=== PATIENT | female | born 1995 | race Caucasian/White ===

== ENCOUNTER 2022-04-16 01:59 | Emergency (ER) | payer OTHER, MEDICAID, SELFPAY ==
[2022-04-16] VITALS (9 sets, daily range): BP systolic 102–132; BP diastolic 65–84; PULSE 67–89; RESP 17; TEMP 36.9; O2SAT 97–99; BMI 44.3
--- NOTE | 2022-04-16 02:41 | ED_ITS ---
HPI - Headache General Chief Complaint: Headache Stated Complaint: Migraine, Epilepsy Time Seen by Provider: 04/16/22 02:41 Mode of arrival: Wheelchair History of Present Illness HPI Narrative: 26-year-old woman with history of seizure disorder as well as migraine presents complaining of in creased tics and partial seizures today with a migraine headache starting at 9 this morning in getting worse over the course of the day. She laid down to go to sleep in at 9:00 p.m. [place] up with significant worsening headache comes in for further evaluation. She does not report fevers, cough, chills, vomiting, diarrhea, abdominal pain, chest pain, palpitations. She has not had any visual changes nor aura. She has had no head trauma. She describes no other neurologic findings nor paresthesias. She has not had any orthopnea, dyspnea or lower extremity edema. Related Data Allergies Allergy/AdvReac Type Severity Reaction Status Date / Time No Known Drug Allergies Allergy Verified 04/16/22 02:15 Review of Systems Review of Systems Narrative: Remainder of complete review of systems is otherwise unremarkable except for that included in the HPI. Patient History Social History Smoking Status: Never smoker Smoking Status: Never smoker alcohol intake frequency: a few times a month Substance Use Type: does not use Exam Initial Vital Signs Initial Vital Signs: Vital Signs Temperature 98.5 F 04/16/22 02:15 Pulse Rate 89 04/16/22 02:15 Respiratory Rate 17 04/16/22 02:15 Blood Pressure 132/84 04/16/22 02:15 Pulse Oximetry 99 04/16/22 02:15 General: Healthy appearing, in no acute distress. Able to give a complete and coherent history. Well-nourished well-developed HEENT: Moist mucous membranes, normal sclera with reactive pupils, Neck: No cervical adenopathy, supple Respiratory: Lungs are clear to auscultation, no wheezing no rales no rhonchi. Full and symmetrical air movement Cardiac: Regular rate and rhythm no murmurs no bruits Abdomen: Soft, nontender, good bowel tones, no flank pain Skin: Warm and dry, no rashes Neurologic: Grossly neurologically intact with no obvious asymmetries or abnormalities, no hyper reflexia or clonus Extremities: No trauma, well perfused Psych: Cooperative, appropriate insight and affect Course Orders Ordered: ED Orders 04/16/22 02:50 CBC Auto Diff [Complete Blood Count AUTO DIFF] Stat CMP [Comprehensive Metabolic Panel] Stat Lamotrigine Lamictal Stat Topiramate Stat Discontinued Medications Sodium Chloride (Normal Saline 0.9%) 1,000 mls @ 1,000 mls/hr IV BOLUS ONE Stop: 04/16/22 03:41 Last Admin: 04/16/22 02:53 Dose: 1,000 mls/hr Documented by: GEORGE Valproic Acid 1,000 mg/ (Dextrose) 60 mls @ 60 mls/hr IV NOW ONE Stop: 04/16/22 03:11 Last Admin: 04/16/22 04:11 Dose: Not Given Documented by: GEORGE Valproic Acid 1,000 mg/ (Dextrose) 110 mls @ 110 mls/hr IV NOW ONE Stop: 04/16/22 05:14 Last Infusion: 04/16/22 05:24 Dose: 0 mls/hr Documented by: Admin: 04/16/22 04:16 Dose: 110 mls/hr Documented by: GEORGE Lorazepam (Lorazepam 2 Mg/Ml Inj) 0.5 mg IV NOW ONE Stop: 04/16/22 02:43 Last Admin: 04/16/22 02:53 Dose: 0.5 mg Documented by: GEORGE Metoclopramide HCl (Metoclopramide 10 Mg/2 Ml Inj) 10 mg IV NOW ONE Stop: 04/16/22 02:43 Last Admin: 04/16/22 02:53 Dose: 10 mg Documented by: GEORGE Vital Signs Vital signs: Vital Signs - 8 hr 04/16/22 02:15 Temperature 98.5 F Pulse Rate 89 Respiratory Rate 17 Blood Pressure 132/84 Pulse Oximetry 99 MDM - Headache Lab Data Result diagrams: 04/16/22 02:50 04/16/22 02:50 Labs: Lab Results 04/16/22 04/16/22 Range/Units 02:50 02:50 WBC 4.5 (4.5-11.0) X10^3/uL RBC 4.87 (4.0-5.2) X10^6/uL Hgb 14.0 (12.0-16.0) g/dL Hct 40.8 (36-46) % MCV 83.7 (80-100) fL MCH 28.7 (26-34) PG MCHC 34.2 (30-36) % RDW 13.5 (11.6-14.8) % Plt Count 253 (150-400) X10^3/uL Neut % (Auto) 40.4 L (50-75) % Lymph % (Auto) 45.6 H (25-40) % [place] % (Auto) 11.6 (3-14) % Eos % (Auto) 1.4 L (2-4) % Baso % (Auto) 1.0 (0-2) % Neut # (Auto) 1800 (2727-9603) /uL Lymph # (Auto) 2100 (7084-7550) /uL [place] # (Auto) 500 (0-900) /uL Eos # (Auto) 100 (0-450) /uL Baso # (Auto) 0 (0-100) /uL Sodium 138 (137-145) mmol/L Potassium 3.9 (3.4-5.1) mmol/L Chloride 108 H (98-107) mmol/L Carbon Dioxide 22 (22-32) mmol/L BUN 13 (7-17) mg/dL Creatinine 0.98 (0.52-1.04) mg/dL Estimated GFR > 60 (>60) mL/min BUN/Creatinine Ratio 13.3 (6-22) Glucose 102 H (70-100) mg/dL Calcium 9.1 (8.4-10.2) mg/dL Total Bilirubin 0.4 (0.2-1.3) mg/dL AST 27 (14-36) IU/L ALT 30 (<35) IU/L Alkaline Phosphatase 44 (38-126) U/L Total Protein 7.8 (6.3-8.2) g/dL Albumin 4.3 (3.5-5.0) g/dL Globulin 3.5 (1.7-4.1) g/dL Albumin/Globulin Ratio 1.2 (1.0-2.8) MDM Narrative Medical decision making narrative: 26-year-old woman with history of migraines and seizure disorder presents with headache and concerned that she is having increasing spasms or muscle tone which have proceeded seizures in the past. She is continuing to take her Lamictal and topiramate regularly. She initially noted her headache at 9:00 a.m. this morning it has gotten progressively worse. With fluids, IV valproic acid, Reglan and Toradol her headache has almost entirely resolved. She has not noticed any excessive muscle fasciculation or pre seizure aura type symptoms since medications have infused. Lab work is reassuring. She appears quite comfortable prior to discharge with no evidence of impending seizure or obvious infection. She did have questions about additional imaging. At this point if additional imaging were to be requested it would likely need to be an MRI and most appropriately done as an outpatient by her neurologist. She understands this. Questions are answered and she is safe for home discharge Discharge Plan Departure Patient Disposition: Home Clinical Impression: Migraine, Seizure disorder Instructions: Migraine -- Adult, DI for Migraine Activity Restrictions/Additional Instructions: Thank you for coming in today Your headache responded nicely to migraine medications. I did take the opportunity to use valproic acid is a migraine medication knowing that it is also is an anti seizure medication. Doing this seems to have calmed down and your overall tics and concerns for increasing seizure-type activity. Your blood work was reassuring. The lamotrigine and topiramate blood levels will likely be available by the end of the week. I would encourage you to sign up for the [facility] portal so that you can access your own lab work and share the levels with your neurologist when you follow-up next week. If you find that you are getting worse or develop any new symptoms, please feel free to return to the emergency department for further evaluation.
[2022-04-16] MEDS: SODIUM CHLORIDE 0.9% 1,000 ML 1000 ML IV (02:53)
[2022-04-16] MEDS: LORazepam 2 MG/ML INJ 0.5 MG IV (02:53)
[2022-04-16] MEDS: METOCLOPRAMIDE 10 MG/2 ML INJ IV (02:53)
[2022-04-16 03:00] LABS: Add Manual Diff / Slide Review NO; Basophils Absolute Auto 0 /uL (0-100); Eosinophils Absolute Auto 100 /uL (0-450); Eosinophils Percent Auto 1.4 % (2-4); Hematocrit 40.8 % (36-46); Lymphocytes Absolute Auto 2100 /uL (1100-4500); Lymphocytes Percent Auto 45.6 % (25-40); Mean Corpuscular HGB Conc 34.2 % (30-36); Mean Corpuscular Hemoglobin 28.7 PG (26-34); Mean Corpuscular Volume 83.7 fL (80-100); Monocytes Absolute Auto 500 /uL (0-900); Monocytes Percent Auto 11.6 % (3-14); Neutrophils Absolute Auto 1800 /uL (1500-7000); Neutrophils Percent Auto 40.4 % (50-75); Platelet Count 253 X10^3/uL (150-400); Red Blood Cell Count 4.87 X10^6/uL (4.0-5.2); Red Cell Distribution Width 13.5 % (11.6-14.8); White Blood Cell Count 4.5 X10^3/uL (4.5-11.0)
[2022-04-16 03:11] LABS: Alanine Aminotransferase 30 IU/L (<35); Albumin 4.3 g/dL (3.5-5.0); Albumin Globulin Ratio 1.2 (1.0-2.8); Alkaline Phosphatase 44 U/L (38-126); Aspartate Aminotransferase 27 IU/L (14-36); BUN Creatinine Ratio 13.3 (6-22); Bilirubin Total 0.4 mg/dL (0.2-1.3); Blood Urea Nitrogen 13 mg/dL (7-17); Calcium 9.1 mg/dL (8.4-10.2); Carbon Dioxide 22 mmol/L (22-32); Chloride 108 mmol/L (98-107); Estimated Glomerular Filt Rate > 60 mL/min (>60); Globulin 3.5 g/dL (1.7-4.1); Glucose 102 mg/dL (70-100); HEMOLYSIS 19 (0-50); Potassium 3.9 mmol/L (3.4-5.1); Sodium 138 mmol/L (137-145); Total Protein 7.8 g/dL (6.3-8.2)
[2022-04-16] MEDS: VALPROIC ACID IV (04:16)
[2022-04-16] MEDS: DEXTROSE 5% IV (04:16)
[2022-04-16] MEDS: WATER IV (04:16)
[2022-04-18 14:22] LABS: Lamotrigine Lamictal 3.5 ug/mL (2.0-20.0); Topiramate 2.8 ug/mL (2.0-25.0)
== END 2022-04-16 05:42 | disposition home or self-care (01) ==
PROVIDERS: Emergency Provider Emergency Medicine
DX: G43.909 Migraine, unspecified, not intractable, without status migrainosus (principal); G40.909 Epilepsy, unspecified, not intractable, without status epilepticus
CPT/HCPCS: 36415; 80053; 80175; 80201; 85025; 96365; 96375; 99284; J2060; J2765

== ENCOUNTER 2022-04-17 18:41 | Emergency (ER) | payer OTHER, MEDICAID, SELFPAY ==
[2022-04-17 19:00] VITALS: BP 127/73; PULSE 81; RESP 18; TEMP 36.1; O2SAT 98; BMI 42.8
[2022-04-17 21:48] VITALS: PULSE 66; O2SAT 100
[2022-04-17 21:49] VITALS: BP 113/69; PULSE 69; O2SAT 99
[2022-04-17 22:00] VITALS: PULSE 69; O2SAT 98
--- NOTE | 2022-04-17 22:24 | PC.NURSE ---
Pt reports that she contacted her neurologist and was instructed to increase her medications this evening but she has not done this yet, she did not bring her meds with her. She feels very tired and weak, she reports generalized pain 8/10.
[2022-04-17 22:30] VITALS: PULSE 88; O2SAT 98
--- NOTE | 2022-04-17 23:48 | ED_ITS ---
HPI - Seizure General Chief Complaint: Seizure Stated Complaint: Migraine, Seizure Time Seen by Provider: 04/17/22 23:31 History of Present Illness HPI Narrative: 26 Female with history of seizure disorder as well as migraine complaining of worsening migraine headache yesterday and increased tics as well. She was seen evaluated yesterday in the emergency department. She takes her Lamictal and topiramate regularly she is followed by neurology at [facility]. Yesterday she was having increased spasms or muscle tones was usually proceed her seizures in the past. She was given a dose of valproic acid yesterday along with Reglan and Toradol which completely resolved her headache. Today she returns could she has had what she called up of some seizures where she stares off into space boyfriend notes that her head just drops times. No nausea or vomiting. She still is complaining of headache she is requesting CT at this time because she is not getting better. She is actually scheduled for an outpatient MRI on April 30 with neurology. She denies any trauma or head injury Related Data Previous Rx's Medication Instructions Recorded topiramate 25 mg tablet (Topamax) 25 mg PO BID #60 tab 04/18/22 topiramate 50 mg tablet (Topamax) 50 mg PO BID #60 tab 04/18/22 Allergies Allergy/AdvReac Type Severity Reaction Status Date / Time No Known Drug Allergies Allergy Verified 04/17/22 19:05 Review of Systems Review of Systems Narrative: GENERAL: Denies chills, fatigue, malaise, fever, sweats, travel HEENT: Denies sinus pain, ear pain, sore throat, difficulty swallowing, neck pain RESPIRATORY: Denies dyspnea, cough, wheezing, hemoptysis, sputum. CARDIOVASCULAR: Denies chest pain, palpitations, orthopnea, edema GASTROINTESTINAL: Denies nausea, vomiting, abdominal pain, diarrhea, constipation, melena. : Denies dysuria, frequency, incontinence, hematuria, urinary retention, flank pain. MUSCULOSKELETAL: Denies weakness, joint pain, or bony pain SKIN: No rash, no erythema, no pruritus NEUROLOGIC: See HPI PSYCHIATRIC: No concerning psychosocial issues. 12 point review of systems is negative except for those stated above and HPI Patient History Social History Smoking Status: Never smoker Smoking Status: Never smoker alcohol intake frequency: a few times a month Substance Use Type: does not use Exam Initial Vital Signs Initial Vital Signs: Vital Signs Temperature 96.9 F L 04/17/22 19:00 Pulse Rate 81 04/17/22 19:00 Respiratory Rate 18 04/17/22 19:00 Blood Pressure 127/73 04/17/22 19:00 Pulse Oximetry 98 04/17/22 19:00 GENERAL: Alert 26-year-old female no acute distress HEENT: Head atraumatic,EOMI, pupils reactive, face symmetric, moist mucous membranes CARDIOVASCULAR: Regular rate and rhythm without murmurs, rubs or gallops. RESPIRATORY: Breath sounds equal bilaterally, no wheezes rales or rhonchi. ABDOMEN: Soft, nontender. Normoactive bowel sounds all 4 quadrants. No gu arding or rebound. EXTREMITIES: Normal range of motion, no clubbing or edema. Neurovascularly intact NEUROLOGICAL: Alert and oriented x4.Normal gait and speech. Cranial nerves II through XII grossly intact. Chief Science Officer strength equal bilateral SKIN: Warm, dry, no laceration, no petechiae, no rashes or lesions. Course Orders Ordered: ED Orders 04/17/22 23:49 CBC Auto Diff [Complete Blood Count AUTO DIFF] Stat CMP [Comprehensive Metabolic Panel] Stat Valproic Acid (Depakene) Total Stat 04/18/22 00:00 CT head/brain wo con Stat 04/18/22 00:14 PT [Prothrombin Time INR] Stat PTT [Partial Thromboplastin Time] Stat Prolactin Stat 04/18/22 01:48 COVID19 -Nasal RAPID/Pre-Proc Stat 04/18/22 03:17 CT angio head and neck Stat CT head/brain wo con Stat Discontinued Medications Hydrocodone Bitart/Acetaminophen (Hydrocodone/Acet 5/325 Prepack) 1 bottle MISC SEEINSTR ONE Stop: 04/18/22 06:38 Last Admin: 04/18/22 06:40 Dose: 1 bottle Documented by: SANDRA Morphine Sulfate (Morphine 2 Mg/Ml Inj) 2 mg IV NOW ONE Stop: 04/18/22 01:24 Last Admin: 04/18/22 01:30 Dose: 2 mg Documented by: SANDRA Morphine Sulfate (Morphine 2 Mg/Ml Inj) 2 mg IV NOW ONE Stop: 04/18/22 02:40 Last Admin: 04/18/22 02:43 Dose: 2 mg Documented by: SANDRA Ondansetron HCl (Ondansetron 4 Mg/2 Ml Inj) 4 mg IV NOW ONE Stop: 04/18/22 01:25 Last Admin: 04/18/22 01:30 Dose: 4 mg Documented by: SANDRA Vital Signs Vital signs: Vital Signs - 8 hr 04/18/22 02:59 04/18/22 03:00 04/18/22 03:30 Pulse Rate 72 77 73 Blood Pressure Pulse Oximetry 95 95 96 04/18/22 04:00 04/18/22 04:30 04/18/22 05:00 Pulse Rate 76 88 68 Blood Pressure Pulse Oximetry 96 97 96 04/18/22 05:30 04/18/22 06:00 04/18/22 06:30 Pulse Rate 65 67 71 Blood Pressure Pulse Oximetry 97 96 96 04/18/22 06:33 Pulse Rate 72 Blood Pressure 111/59 L Pulse Oximetry 98 MDM - Seizure Lab Data Result diagrams: 04/18/22 00:14 04/18/22 00:14 Labs: Lab Results 04/18/22 04/18/22 04/18/22 Range/Units 00:14 00:14 00:14 WBC 5.0 (4.5-11.0) X10^3/uL RBC 4.49 (4.0-5.2) X10^6/uL Hgb 13.2 (12.0-16.0) g/dL Hct 37.9 (36-46) % MCV 84.5 (80-100) fL MCH 29.5 (26-34) PG MCHC 34.9 (30-36) % RDW 13.3 (11.6-14.8) % Plt Count 283 (150-400) X10^3/uL Neut % (Auto) 33.1 L (50-75) % Lymph % (Auto) 52.5 H (25-40) % [place] % (Auto) 11.8 (3-14) % Eos % (Auto) 1.7 L (2-4) % Baso % (Auto) 0.9 (0-2) % Neut # (Auto) 1600 (6391-6401) /uL Lymph # (Auto) 2600 (8742-2882) /uL [place] # (Auto) 600 (0-900) /uL Eos # (Auto) 100 (0-450) /uL Baso # (Auto) 0 (0-100) /uL PT 12.0 (10.1-12.7) SECONDS INR 1.1 (0.9-1.3) APTT 40 H (26.4-36.2) SECONDS Sodium 140 (137-145) mmol/L Potassium 3.6 (3.4-5.1) mmol/L Chloride 109 H (98-107) mmol/L Carbon Dioxide 22 (22-32) mmol/L BUN 12 (7-17) mg/dL Creatinine 0.90 (0.52-1.04) mg/dL Estimated GFR > 60 (>60) mL/min BUN/Creatinine Ratio 13.3 (6-22) Glucose 91 (70-100) mg/dL Calcium 9.0 (8.4-10.2) mg/dL Total Bilirubin 0.4 (0.2-1.3) mg/dL AST 21 (14-36) IU/L ALT 23 (<35) IU/L Alkaline Phosphatase 42 (38-126) U/L Total Protein 7.5 (6.3-8.2) g/dL Albumin 4.1 (3.5-5.0) g/dL Globulin 3.4 (1.7-4.1) g/dL Albumin/Globulin Ratio 1.2 (1.0-2.8) Prolactin (3.0-18.6) ng/mL SARS-CoV-2 (PCR) (Negative) 04/18/22 04/18/22 Range/Units 00:14 01:48 WBC (4.5-11.0) X10^3/uL RBC (4.0-5.2) X10^6/uL Hgb (12.0-16.0) g/dL Hct (36-46) % MCV (80-100) fL MCH (26-34) PG MCHC (30-36) % RDW (11.6-14.8) % Plt Count (150-400) X10^3/uL Neut % (Auto) (50-75) % Lymph % (Auto) (25-40) % [place] % (Auto) (3-14) % Eos % (Auto) (2-4) % Baso % (Auto) (0-2) % Neut # (Auto) (2294-9160) /uL Lymph # (Auto) (5661-3744) /uL [place] # (Auto) (0-900) /uL Eos # (Auto) (0-450) /uL Baso # (Auto) (0-100) /uL PT (10.1-12.7) SECONDS INR (0.9-1.3) APTT (26.4-36.2) SECONDS Sodium (137-145) mmol/L Potassium (3.4-5.1) mmol/L Chloride (98-107) mmol/L Carbon Dioxide (22-32) mmol/L BUN (7-17) mg/dL Creatinine (0.52-1.04) mg/dL Estimated GFR (>60) mL/min BUN/Creatinine Ratio (6-22) Glucose (70-100) mg/dL Calcium (8.4-10.2) mg/dL Total Bilirubin (0.2-1.3) mg/dL AST (14-36) IU/L ALT (<35) IU/L Alkaline Phosphatase (38-126) U/L Total Protein (6.3-8.2) g/dL Albumin (3.5-5.0) g/dL Globulin (1.7-4.1) g/dL Albumin/Globulin Ratio (1.0-2.8) Prolactin 43.0 H (3.0-18.6) ng/mL SARS-CoV-2 (PCR) Negative (Negative) Point of Care Testing Test Results Negative Urine Dip Bedside Urine Glucose Negative Bedside Urine Bilirubin - Negative Bedside Urine Ketone - Negative Urine Specific [place] 1.020 Bedside Urine Occult Blood - Negative Bedside Urine pH 6.5 Bedside Urine Protein - Negative Bedside Urine Urobilinogen - Negative Bedside Urine Nitrite - Negative Bedside Urine Leukocytes - Negative Esterase Imaging Data CT scan - head: Radiologist's Impression: Patient: Marilia Sanchez MR#: [id number] : 1995 Acct:[id number] Age/Sex: 26 / F Date of Service: 04/18/22 Loc: ED Accession Number: [id number] ?? Procedure: CT head/brain wo con Ordering Provider: Mai Le D.O. PROCEDURE:? CT HEAD/BRAIN WO CON ? INDICATIONS:? headaches abnormal ? TECHNIQUE:? Noncontrast 4.5 mm thick angled axial sections acquired from the foramen magnum to the vertex, with coronal and sagittal reformats.? For radiation dose reduction, the following was used:? automated exposure control, adjustment of mA and/or kV according to patient size.? ? COMPARISON:? None. ? FINDINGS:? Image quality:? Excellent.? ? CSF spaces:? Basal cisterns are patent.? No extra-axial fluid collections.? Ventricles are normal in size and shape.? ? Brain:? There is a small amount of linear high density along a left posterior frontal lobe sulcus on series 2, image 22. No mass or mass effect.? Shin-white matter interface appears preserved.? ? Skull and face:? Calvarium and visualized facial bones are intact, without suspicious lesions.? ? Sinuses:? Visualized sinuses and mastoids are clear.? ? IMPRESSION:? ? 1. Small amount of subarachnoid hemorrhage along the posterior left frontal lobe . ? Findings discussed with Dr. Le on 04/18/2022 at 1:10 a.m.. ? ? Dictated by: Héctor Johnson M.D. on 04/18/2022 at 1:06 ? ? CTA - brain/neck: Radiologist's Impression: Preliminary report: Prominent venous structure is present within left parietal lobe adjacent to previously noted density possibly a small developmental venous variant no aneurysm or chew AVM I appreciate CT Head: Radiologist's Impression: Preliminary report left parietal parenchymal density could represent calcification acute hemorrhage. There is no mass effect in appearance is stable. Not suggestive of subarachnoid hemorrhage on the current study. No new abnormality. MDM Narrative Medical decision making narrative: Patient really does not have actual seizure activity in the emergency department. Possible some mild twitching which family member state improved with morphine. Her pain is significantly better after the morphine and itching has stopped. Prolactin is mildly elevated at 47. Initial CT was concerning for subarachnoid hemorrhage 0255 Dr. Shaw, neuro surgery at [facility] has reviewed CT and updated patient's symptoms and test results. At this time he read recommends a repeat head CT with a CT angio. If patient has a known cavernous malformation is difficult to tell if this is of bleed or the cavernous malformation. However he suspects it is a cavernous malformation in which case no need for transfer. States if CT angio and noncontrast CT head are stable the patient may be dis charged from the emergency department. Repeat head CT and CT angio are negative, probable location of cavernous malformation. 0600 Dr. Mckay, neurologist at [facility] has been updated patient's symptoms test results. At this time recommends increasing Topamax to 75 mg twice a day and following up with . Discussed plan with patient and mother. Both are agreeable. Discharge Plan Departure Patient Disposition: Home Clinical Impression: Seizure disorder Instructions: DI for Seizure Disorder -- Adult Activity Restrictions/Additional Instructions: *You have been diagnosed with seizure disorder *What to do: Fortunately you not have bleeding in your brain. However high still recommend getting her outpatient MRI as scheduled. Spoke with on-call Neurology who suggest increasing Topamax, in following up with her own neurologist *Continue to take medications as directed Topamax 75 mg twice a day *Follow up with your primary care provider in 2-3 days or call [phone] *Return to ER if you should have increased seizure activity, worsening headache, weakness persistent vomiting or any new, worsening or concerning symptoms Prescriptions: New topiramate [Topamax] 50 mg tablet 50 mg PO BID Qty: 60 0RF topiramate [Topamax] 25 mg tablet 25 mg PO BID Qty: 60 0RF Referrals: Maddie King MD [Non-Staff] - Visit Report Forms: Patient Portal/API
[2022-04-18] VITALS (10 sets, daily range): BP systolic 111; BP diastolic 59; PULSE 65–88; O2SAT 95–98
--- NOTE | 2022-04-18 | DI.CT.S_ITS ---
PROCEDURE: CT HEAD/BRAIN WO CON INDICATIONS: headaches abnormal TECHNIQUE: Noncontrast 4.5 mm thick angled axial sections acquired from the foramen magnum to the vertex, with coronal and sagittal reformats. For radiation dose reduction, the following was used: automated exposure control, adjustment of mA and/or kV according to patient size. COMPARISON: None. FINDINGS: Image quality: Excellent. CSF spaces: Basal cisterns are patent. No extra-axial fluid collections. Ventricles are normal in size and shape. Brain: There is a small amount of linear high density along a left posterior frontal lobe sulcus on series 2, image 22. No mass or mass effect. Shin-white matter interface appears preserved. Skull and face: Calvarium and visualized facial bones are intact, without suspicious lesions. Sinuses: Visualized sinuses and mastoids are clear. IMPRESSION: 1. Small amount of subarachnoid hemorrhage along the posterior left frontal lobe. Findings discussed with Dr. Le on 04/18/2022 at 1:10 a.m.. Dictated by: Héctor Johnson M.D. on 04/18/2022 at 1:06 Approved by: Héctor Johnson M.D. on 04/18/2022 at 1:11
[2022-04-18 00:30] LABS: Add Manual Diff / Slide Review NO; Basophils Absolute Auto 0 /uL (0-100); Basophils Percent Auto 0.9 % (0-2); Eosinophils Absolute Auto 100 /uL (0-450); Eosinophils Percent Auto 1.7 % (2-4); Hematocrit 37.9 % (36-46); Hemoglobin 13.2 g/dL (12.0-16.0); Lymphocytes Absolute Auto 2600 /uL (1100-4500); Lymphocytes Percent Auto 52.5 % (25-40); Mean Corpuscular HGB Conc 34.9 % (30-36); Mean Corpuscular Hemoglobin 29.5 PG (26-34); Mean Corpuscular Volume 84.5 fL (80-100); Monocytes Absolute Auto 600 /uL (0-900); Monocytes Percent Auto 11.8 % (3-14); Neutrophils Absolute Auto 1600 /uL (1500-7000); Neutrophils Percent Auto 33.1 % (50-75); Platelet Count 283 X10^3/uL (150-400); Red Blood Cell Count 4.49 X10^6/uL (4.0-5.2); Red Cell Distribution Width 13.3 % (11.6-14.8)
[2022-04-18 00:36] LABS: Alanine Aminotransferase 23 IU/L (<35); Albumin 4.1 g/dL (3.5-5.0); Albumin Globulin Ratio 1.2 (1.0-2.8); Alkaline Phosphatase 42 U/L (38-126); Aspartate Aminotransferase 21 IU/L (14-36); BUN Creatinine Ratio 13.3 (6-22); Bilirubin Total 0.4 mg/dL (0.2-1.3); Blood Urea Nitrogen 12 mg/dL (7-17); Carbon Dioxide 22 mmol/L (22-32); Chloride 109 mmol/L (98-107); Estimated Glomerular Filt Rate > 60 mL/min (>60); Globulin 3.4 g/dL (1.7-4.1); Glucose 91 mg/dL (70-100); HEMOLYSIS < 15 (0-50); Potassium 3.6 mmol/L (3.4-5.1); Sodium 140 mmol/L (137-145); Total Protein 7.5 g/dL (6.3-8.2)
[2022-04-18] MEDS: MORPHINE 2 MG/ML INJ IV ×2 (01:30→02:43)
[2022-04-18] MEDS: ONDANSETRON 4 MG/2 ML INJ IV (01:30)
[2022-04-18 01:34] LABS: INR 1.1 (0.9-1.3)
[2022-04-18 01:37] LABS: PTT Partial Thromboplastin Tim 40 SECONDS (26.4-36.2)
[2022-04-18 02:13] LABS: COVID19 -Nasal RAPID Negative (Negative)
--- NOTE | 2022-04-18 03:17 | DI.CT.S_ITS ---
PROCEDURE: CT ANGIO HEAD AND NECK INDICATIONS: SAH vs cavernous malformation TECHNIQUE: After the administration of intravenous contrast, 1 mm thick sections acquired from the aortic arch through the [place] of [place]. Post-contrast 4.5 mm thick sections then re-acquired from the foramen magnum to the vertex. 3-dimensional [id number] (MIP) and/or volume rendering reformats were acquired of the central intracranial vasculature and neck separately. For radiation dose reduction, the following was used: automated exposure control, adjustment of mA and/or kV according to patient size. COMPARISON: None. FINDINGS: Image quality: Excellent. BRAIN: CSF spaces: Ventricles are normal in size and shape. Basal cisterns are patent. No extra-axial fluid collections. Brain: There is a mildly enhancing 1.0 x 0.7 x 0.9 centimeter lesion in the left parietal lobe which corresponds to finding identified by noncontrast CT scan of the head obtained April 18, 2022. No local mass effect associated with the lesion. No edema is associated with the lesion. No midline shift. No intracranial bleeds. Shin-white matter interface appears intact. Skull and face: Calvarium and facial bones appear intact, without suspicious lesions. Orbits appear normal. Sinuses: Sinuses and mastoids are clear. HEAD CT ANGIOGRAPHY: Anterior circulation: Intracranial internal carotid arteries are normal in size and flow. The flow within the paired anterior cerebral arteries is normal and symmetric. The flow within the middle cerebral arteries is normal and symmetric. The anterior communicating artery is seen. No aneurysms are seen. Posterior circulation: Visualized portions of the vertebral arteries demonstrate normal caliber, and join to form a normal appearing basilar artery. Flow within the posterior cerebral arteries is normal and symmetric. No aneurysms are seen. Dural sinuses demonstrate normal postcontrast enhancement. NECK CT ANGIOGRAPHY: Carotid system: The great vessels demonstrate a conventional anatomy as they arise from the aortic arch. The origins of the common carotid arteries appear patent. The common carotid arteries demonstrate normal caliber and courses. The bifurcation regions are both widely patent. The internal carotid arteries demonstrate normal calibers and courses. Posterior circulation: The origins of the vertebral arteries both appear widely patent. The more superior extracranial portions of both vertebral arteries also demonstrate normal courses and calibers. They join to form a normal appearing basilar artery. Soft tissues: Mucosal prominence noted at the base of the tongue which could represent lingual tonsil hypertrophy or less likely neoplastic process. Bones: No suspicious bony lesions. Visualized cervical spine appears normally aligned. IMPRESSION: 1. Small enhancing lesion in the left parietal lobe which corresponds to hyperdense lesion identified by noncontrast CT scan obtained April 18, 2022. Lesion has imaging characteristics most suggestive of a vascular malformation such as cavernous angioma, however neoplastic process is not completely excluded by CT imaging. Recommend MRI of the brain with and without contrast for definitive characterization. 2. No large vessel occlusion, vascular stenosis, vascular dissection or aneurysm. 3. Mucosal prominence at the base of the tongue. Recommend correlation with direct visualization to differentiate lingual tonsil hypertrophy from other etiologies. Any quantitative measurements of stenosis were performed using NASCET criteria. Dictated by: Maryanne Hair MD, PhD on 04/18/2022 at 8:08 Approved by: Maryanne Hair MD, PhD on 04/18/2022 at 8:14
--- NOTE | 2022-04-18 03:17 | DI.CT.S_ITS ---
PROCEDURE: CT HEAD/BRAIN WO CON INDICATIONS: SAH vs cavernous malformation TECHNIQUE: Noncontrast 4.5 mm thick angled axial sections acquired from the foramen magnum to the vertex, with coronal and sagittal reformats. For radiation dose reduction, the following was used: automated exposure control, adjustment of mA and/or kV according to patient size. COMPARISON: [facility], CT, CT ANGIO HEAD AND NECK, 04/18/2022, 3:25. [facility], CT, CT HEAD/BRAIN WO CON, 04/18/2022, 0:11. FINDINGS: Image quality: Excellent. CSF spaces: Basal cisterns are patent. No extra-axial fluid collections. The ventricles are symmetric in size and shape. Brain: There is focal thickening of left parietal gyrus with increased density with speckled calcifications. Lesion measures approximately 1.2 x 0.8 x 1.1 centimeters. No intracranial bleeds. There is cerebral volume loss for age, with resultant ventricular and sulcal prominence. There are periventricular and deep white matter chronic small vessel ischemic changes. There is intracranial internal carotid artery atherosclerosis. Skull and face: Calvarium and visualized facial bones appear intact, without suspicious lesions. Sinuses: Visualized sinuses and mastoids are clear. IMPRESSION: 1.2 x 0.8 x 1.1 centimeter hyperdense lesion with speckled calcifications in the left parietal lobe. Lesion may represent a vascular malformation including cavernoma, however early neoplastic process is not completely excluded. Recommend MRI of the brain with and without gadolinium for definitive characterization. Findings and recommendations discussed with Dr. Nieves on April 18, 2022 at 8:05 a.m.. Dictated by: Maryanne Hair MD, PhD on 04/18/2022 at 7:57 Approved by: Maryanne Hair MD, PhD on 04/18/2022 at 8:06
[2022-04-18] MEDS: HYDROCODONE/ACET 5/325 PREPACK 1 BOTTLE MISC (06:40)
[2022-04-19 00:28] LABS: Valproic Acid (Depakene) Total 6 ug/mL (50-100)
== END 2022-04-18 06:46 | disposition home or self-care (01) ==
PROVIDERS: Emergency Provider Emergency Medicine
DX: G40.909 Epilepsy, unspecified, not intractable, without status epilepticus (principal); Z20.822 Contact with and (suspected) exposure to COVID-19
CPT/HCPCS: 36415; 70450; 70496; 70498; 80053; 80164; 81003; 81025; 84146; 85025; 85610; 85730; 87635; 96374; 96375; 96376; 99284; C9803; J2270; J2405; Q9967

== ENCOUNTER 2023-05-15 16:11 | Emergency (ER) | payer OTHER, MEDICAID, SELFPAY ==
[2023-05-15] VITALS (13 sets, daily range): BP systolic 111–147; BP diastolic 69–87; PULSE 75–106; RESP 16; TEMP 36.3–36.4; O2SAT 97–100; BMI 49.0
[2023-05-15] MEDS: ONDANSETRON 4 MG ODT SL (16:50)
--- NOTE | 2023-05-15 17:02 | PC.NURSE ---
Pt states she has vomited 4-5 times and had diarrhea 3 times in the last hour. Pt states she is concerned she unknowingly ingested gluten and would like to be tested for celiac disease.
[2023-05-15 17:46] LABS: Pregnancy Test Urine Negative (Negative)
[2023-05-15 18:12] LABS: Add Manual Diff / Slide Review NO; Basophils Absolute Auto 0 /uL (0-100); Basophils Percent Auto 0.6 % (0-2); Eosinophils Absolute Auto 0 /uL (0-450); Eosinophils Percent Auto 0.8 % (2-4); Hematocrit 41.4 % (36-46); Hemoglobin 14.2 g/dL (12.0-16.0); Lymphocytes Absolute Auto 1300 /uL (1100-4500); Lymphocytes Percent Auto 20.5 % (25-40); Mean Corpuscular HGB Conc 34.3 % (30-36); Mean Corpuscular Hemoglobin 29.3 PG (26-34); Mean Corpuscular Volume 85.6 fL (80-100); Monocytes Absolute Auto 600 /uL (0-900); Monocytes Percent Auto 9.4 % (3-14); Neutrophils Absolute Auto 4200 /uL (1500-7000); Neutrophils Percent Auto 68.7 % (50-75); Platelet Count 295 X10^3/uL (150-400); Red Blood Cell Count 4.83 X10^6/uL (4.0-5.2); Red Cell Distribution Width 13.5 % (11.6-14.8); White Blood Cell Count 6.1 X10^3/uL (4.5-11.0)
--- NOTE | 2023-05-15 18:17 | ED_ITS ---
HPI - Nausea/Vomiting/Diarrhea General Chief complaint: Nausea/Vomiting/Diarrhea Stated complaint: N/V/D, Poss Celiac Time Seen by Provider: 05/15/23 18:10 Source: patient Mode of arrival: Ambulatory History of Present Illness HPI Narrative: 27-year-old female nonsmoker with a history of prior GI issues presents with a chief complaint of abdominal cramping and persistent nausea and vomiting with a few episodes of diarrhea after eating tacos today. She said that she has had similar issues in the past when exposed to gluten. She states that she has crampy abdominal pain that seems to build until she has an episode of vomiting at which point she experiences some improvement. She is not dizzy nor weak or lightheaded. She is had no fever or chills. Related Data Previous Rx's Medication Instructions Recorded topiramate 25 mg tablet (Topamax) 25 mg PO BID #60 tabs 04/18/22 topiramate 50 mg tablet (Topamax) 50 mg PO BID #60 tabs 04/18/22 hyoscyamine sulfate 0.125 mg tablet 0.125 mg PO BID-QID PRN dyspepsia 05/15/23 #20 tabs ondansetron 4 mg disintegrating 4 mg PO TID-QID PRN nausea and 05/15/23 tablet vomiting #10 tabs pantoprazole 40 mg tablet,delayed 40 mg PO DAILY #30 tabs 05/15/23 release (Protonix) Allergies Allergy/AdvReac Type Severity Reaction Status Date / Time amitriptyline AdvReac Verified 05/15/23 16:32 Review of Systems Review of Systems Narrative: GENERAL: Denies chills, fatigue, malaise, fever, sweats. HEENT: Denies sinus pain, ear pain, sore throat, difficulty swallowing, dizziness. RESPIRATORY: Denies dyspnea, cough, wheezing, hemoptysis, sputum. CARDIOVASCULAR: Denies chest pain, palpitations, orthopnea, edema, GASTROINTESTINAL: See HPI : Denies dysuria, frequency, incontinence, hematuria, urinary retention. MUSCULOSKELETAL: denies weakness, joint pain, or bony pain SKIN: Denies rash, skin lesions, or other NEUROLOGIC: Denies weakness, headache, numbness, change in speech, confusion, seizures, incoordination. PSYCHIATRIC: No concerning psychosocial issues. 12 point review of systems is negative except for those stated above Patient History Social History Smoking Status: Never smoker Smoking Status: Never smoker alcohol intake frequency: a few times a month Substance Use Type: does not use Exam Narrative Exam Narrative: GENERAL: [27] year old patient appears stated age. Well-developed patient, in mild distress. HEAD: Atraumatic. Normocephalic. EYES: Pupils equal round and reactive. Extraocular motions intact. No scleral icterus. No injection or drainage. ENT: Nose without bleeding, purulent drainage. Throat without erythema, tonsillar hypertrophy or exudate. Airway patent. NECK: Trachea midline. Non tender CARDIOVASCULAR: Regular rate and rhythm without murmurs, gallops, or rubs. RESPIRATORY: Clear to auscultation. Breath sounds equal bilaterally. No wheezes, rales, or rhonchi. GASTROINTESTINAL: Abdomen soft, non-tender, nondistended. EXTREMITIES: No edema or joint tenderness. BACK: Nontender without deformity or crepitance. No flank tenderness. NEURO: AOx3. SKIN: No rash or erythema of visible areas Initial Vital Signs Initial Vital Signs: Vital Signs Temperature 97.3 F L 05/15/23 16:32 Pulse Rate 106 H 05/15/23 16:32 Respiratory Rate 16 05/15/23 16:32 Blood Pressure 134/85 05/15/23 16:32 Pulse Oximetry 98 05/15/23 16:32 Oxygen Delivery Method Room Air 05/15/23 16:32 Course Orders Ordered: ED Orders 05/15/23 17:15 Ictotest Urine Stat Test Urine Stat UA Complete [Urinalysis and Microscopic] Stat 05/15/23 17:55 Complete Blood Count AUTO DIFF Stat Comprehensive Metabolic Panel Stat Lipase Stat Ondansetron HCl (Ondansetron 4 Mg Odt) 4 mg SL NOW PRN PRN Reason: Nausea And Vomiting Last Admin: 05/15/23 16:50 Dose: 4 mg Documented By: ST Ondansetron HCl (Ondansetron 4 Mg/2 Ml Inj) 4 mg IV NOW PRN PRN Reason: Nausea And Vomiting Discontinued Medications Sodium Chloride (Normal Saline 0.9%) 1,000 mls @ 1,000 mls/hr IV BOLUS ONE Stop: 05/15/23 19:22 Last Infusion: 05/15/23 19:29 Dose: 0 mls/hr Documented By: Admin: 05/15/23 18:29 Dose: 1,000 mls/hr Documented By: Ondansetron HCl (Ondansetron 4 Mg Odt Prepack) 1 bottle MISC SEEINSTR ONE Stop: 05/15/23 20:19 Vital Signs Vital signs: Vital Signs - 8 hr 05/15/23 16:32 05/15/23 17:15 05/15/23 17:17 Temperature 97.3 F L Pulse Rate 106 H 86 82 Respiratory Rate 16 Blood Pressure 134/85 Pulse Oximetry 98 97 98 Oxygen Delivery Method Room Air 05/15/23 17:17 05/15/23 17:30 05/15/23 17:30 Temperature Pulse Rate 77 Respiratory Rate Blood Pressure 115/76 116/75 Pulse Oximetry 97 Oxygen Delivery Method 05/15/23 18:00 05/15/23 18:02 05/15/23 18:02 Temperature Pulse Rate 87 83 Respiratory Rate Blood Pressure 121/77 Pulse Oximetry 98 98 Oxygen Delivery Method 05/15/23 18:30 05/15/23 18:30 Temperature Pulse Rate 80 Respiratory Rate Blood Pressure 111/79 Pulse Oximetry 100 Oxygen Delivery Method MDM - Nausea/Vomiting/Diarrhea Lab Data 05/15/23 17:55 05/15/23 17:55 Labs: Lab Results 05/15/23 05/15/23 05/15/23 Range/Units 17:15 17:15 17:55 WBC 6.1 (4.5-11.0) X10^3/uL RBC 4.83 (4.0-5.2) X10^6/uL Hgb 14.2 (12.0-16.0) g/dL Hct 41.4 (36-46) % MCV 85.6 (80-100) fL MCH 29.3 (26-34) PG MCHC 34.3 (30-36) % RDW 13.5 (11.6-14.8) % Plt Count 295 (150-400) X10^3/uL Neut % (Auto) 68.7 (50-75) % Lymph % (Auto) 20.5 L (25-40) % [place] % (Auto) 9.4 (3-14) % Eos % (Auto) 0.8 L (2-4) % Baso % (Auto) 0.6 (0-2) % Neut # (Auto) 4200 (1382-3524) /uL Lymph # (Auto) 1300 (1084-6531) /uL [place] # (Auto) 600 (0-900) /uL Eos # (Auto) 0 (0-450) /uL Baso # (Auto) 0 (0-100) /uL Sodium (137-145) mmol/L Potassium (3.4-5.1) mmol/L Chloride (98-107) mmol/L Carbon Dioxide (22-32) mmol/L BUN (7-17) mg/dL Creatinine (0.52-1.04) mg/dL Estimated GFR (>60) mL/min BUN/Creatinine Ratio (6-22) Glucose (70-100) mg/dL Calcium (8.4-10.2) mg/dL Total Bilirubin (0.2-1.3) mg/dL AST (14-36) IU/L ALT (<35) IU/L Alkaline Phosphatase (38-126) U/L Total Protein (6.3-8.2) g/dL Albumin (3.5-5.0) g/dL Globulin (1.7-4.1) g/dL Albumin/Globulin Ratio (1.0-2.8) Lipase (23-300) U/L Urine Color Yellow Urine Appearance Cloudy Urine pH 5.5 (4.5-8.0) Ur Specific [place] >=1.030 H (1.000-1.035) Urine Protein Negative (Negative) Urine Glucose (UA) Negative (Negative) g/dL Urine Ketones Trace H (NEGATIVE) Urine Occult Blood Negative (Negative) Urine Nitrate Negative (Negative) Urine Bilirubin 1+ H (NEGATIVE) Ur Bilirubin Confirm Negative (Negative) Urine Urobilinogen 1.0 (0.2) E.U./dL Ur Leukocyte Esterase Negative (NEGATIVE) Urine RBC None seen (0-5/HPF) Urine WBC 0-1/hpf (0-5/HPF) Ur Squamous Epith Cells 5-10 /hpf H (0-5/HPF) Calcium Oxalate Crystal Moderate H Amorphous Sediment 3+ Urine Bacteria None seen (None) Ur Culture Indicated? Cult not indicated Urine Test Negative (Negative) 05/15/23 Range/Units 17:55 WBC (4.5-11.0) X10^3/uL RBC (4.0-5.2) X10^6/uL Hgb (12.0-16.0) g/dL Hct (36-46) % MCV (80-100) fL MCH (26-34) PG MCHC (30-36) % RDW (11.6-14.8) % Plt Count (150-400) X10^3/uL Neut % (Auto) (50-75) % Lymph % (Auto) (25-40) % [place] % (Auto) (3-14) % Eos % (Auto) (2-4) % Baso % (Auto) (0-2) % Neut # (Auto) (0027-1807) /uL Lymph # (Auto) (0784-1921) /uL [place] # (Auto) (0-900) /uL Eos # (Auto) (0-450) /uL Baso # (Auto) (0-100) /uL Sodium 137 (137-145) mmol/L Potassium 4.1 (3.4-5.1) mmol/L Chloride 103 (98-107) mmol/L Carbon Dioxide 27 (22-32) mmol/L BUN 9 (7-17) mg/dL Creatinine 0.90 (0.52-1.04) mg/dL Estimated GFR > 60 (>60) mL/min BUN/Creatinine Ratio 10.0 (6-22) Glucose 92 (70-100) mg/dL Calcium 9.8 (8.4-10.2) mg/dL Total Bilirubin 0.5 (0.2-1.3) mg/dL AST 26 (14-36) IU/L ALT 32 (<35) IU/L Alkaline Phosphatase 50 (38-126) U/L Total Protein 7.9 (6.3-8.2) g/dL Albumin 4.3 (3.5-5.0) g/dL Globulin 3.6 (1.7-4.1) g/dL Albumin/Globulin Ratio 1.2 (1.0-2.8) Lipase 59 (23-300) U/L Urine Color Urine Appearance Urine pH (4.5-8.0) Ur Specific [place] (1.000-1.035) Urine Protein (Negative) Urine Glucose (UA) (Negative) g/dL Urine Ketones (NEGATIVE) Urine Occult Blood (Negative) Urine Nitrate (Negative) Urine Bilirubin (NEGATIVE) Ur Bilirubin Confirm (Negative) Urine Urobilinogen (0.2) E.U./dL Ur Leukocyte Esterase (NEGATIVE) Urine RBC (0-5/HPF) Urine WBC (0-5/HPF) Ur Squamous Epith Cells (0-5/HPF) Calcium Oxalate Crystal Amorphous Sediment Urine Bacteria (None) Ur Culture Indicated? Urine Test (Negative) MDM Narrative Medical decision making narrative: [27] year old patient presents with nausea, vomiting, diarrhea and crampy abdominal pain after eating tacos Multiple etiologies for patient's symptoms considered including, but not limited to: [Food-borne illness versus food intolerance versus other] Prior Charts reviewed in our EMR Primary Historian: patient Labs reviewed and interpreted by myself: No significant abnormalities requiring a specific intervention Patient's symptoms improved over duration of stay with above-stated therapies. Pain is well controlled, she is tolerating orals. She has had similar circumstances in the past with a similar path. We discussed the utility of imaging and sure the opinion that at this point in time and is not likely to change the disposition. She is encouraged to employed clear liquid diet for a few days and certainly avoid gluten as well as fatty foods. Findings and discharge diagnosis discussed with patient/family followed by verbalization of understanding Return precautions discussed with patient/family whom verbalize understanding of diagnosis and plan Discharge Plan Departure Patient Disposition: Home Clinical Impression: Vomiting and diarrhea Instructions: DI for Vomiting -- Adult Activity Restrictions/Additional Instructions: *You have been diagnosed with [abdominal pain ] * As we discussed your history and physical exam as well as labs and imaging are very reassuring. There is no evidence of any severe diagnoses that would require a specific or immediate intervention. *What to do: *Please continue to take your regular medications as directed. [x ] New medication prescriptions sent to your pharmacy: [[facility] ] *Please follow up with your primary care provider in 2-3 days, call for an appointment. Let them know you were seen in the Emergency Department and that we ask that you be seen in follow up. We will electronically transmit a record of today's note if your PCP is in our system *Please consider a clear liquid diet for the next 24-48 hours and then slowly advance to regular as tolerated. Also, try to avoid alcohol, nicotine, caffeine, spicy, acidic or fatty foods as this may worsen your symptoms *If you do not have a primary care provider please contact the [facility] Resource line at [phone]. They will ask some questions about your medical history and help get you set up with a doctor in the community. *Return to Emergency Department if you should have any new, worsening or concerning symptoms, such as [fever greater than 101 F, shaking chills, worsening pain, persistent vomiting or other bothersome symptoms] Prescriptions: New pantoprazole [Protonix] 40 mg tablet,delayed release (DR/EC) 40 mg PO DAILY Qty: 30 0RF hyoscyamine sulfate 0.125 mg tablet 0.125 mg PO BID-QID PRN (Reason: dyspepsia) Qty: 20 0RF ondansetron 4 mg tablet,disintegrating 4 mg PO TID-QID PRN (Reason: nausea and vomiting) Qty: 10 0RF No Action topiramate [Topamax] 50 mg tablet 50 mg PO BID Qty: 60 0RF topiramate [Topamax] 25 mg tablet 25 mg PO BID Qty: 60 0RF Stand Alone Forms: Patient Portal/API
[2023-05-15 18:19] LABS: Alanine Aminotransferase 32 IU/L (<35); Albumin 4.3 g/dL (3.5-5.0); Albumin Globulin Ratio 1.2 (1.0-2.8); Alkaline Phosphatase 50 U/L (38-126); Aspartate Aminotransferase 26 IU/L (14-36); Bilirubin Total 0.5 mg/dL (0.2-1.3); Blood Urea Nitrogen 9 mg/dL (7-17); Calcium 9.8 mg/dL (8.4-10.2); Carbon Dioxide 27 mmol/L (22-32); Chloride 103 mmol/L (98-107); Estimated Glomerular Filt Rate > 60 mL/min (>60); Globulin 3.6 g/dL (1.7-4.1); Glucose 92 mg/dL (70-100); HEMOLYSIS < 15 (0-50); Lipase 59 U/L (23-300); Potassium 4.1 mmol/L (3.4-5.1); Sodium 137 mmol/L (137-145); Total Protein 7.9 g/dL (6.3-8.2)
[2023-05-15] MEDS: SODIUM CHLORIDE 0.9% 1,000 ML 1000 ML IV (18:29)
[2023-05-15 19:50] LABS: Appearance Urine UA CLOUDY; Bilirubin Urine UA 1+ (NEGATIVE); Color Urine UA YELLOW; Glucose Urine UA NEGATIVE (Negative); Ketones Urine UA TRACE (NEGATIVE); Leukocyte Esterase Urine UA NEGATIVE (NEGATIVE); Nitrite Urine UA NEGATIVE (Negative); Occult Blood Urine UA NEGATIVE (Negative); Protein Urine UA NEGATIVE (Negative); Specific Gravity Urine UA >=1.030 (1.000-1.035)
[2023-05-15 19:51] LABS: pH Urine UA 5.5 (4.5-8.0)
[2023-05-15 20:00] LABS: Amorphous Sediment Urine 3+; Bacteria Urine None Seen; Calcium Oxalate Crystals Urine Moderate; Culture Indicated Urine Cult Not Indicated; Ictotest Urine Negative (Negative); RBC Urine None Seen (0-5/HPF); Squamous Epithelial Cell Urine 5-10 /HPF (0-5/HPF); WBC Urine 0-1/HPF (0-5/HPF)
[2023-05-15] MEDS: ONDANSETRON 4 MG ODT PREPACK 1 BOTTLE MISC (20:47)
== END 2023-05-15 20:40 | disposition home or self-care (01) ==
PROVIDERS: Emergency Medicine; Emergency Provider Emergency Medicine
DX: R11.2 Nausea with vomiting, unspecified (principal); R19.7 Diarrhea, unspecified
CPT/HCPCS: 36415; 80053; 81001; 81025; 83690; 85025; 96360; 99284

== ENCOUNTER → 2023-07-28 11:33 | Outpatient (CLI) | payer OTHER, MEDICAID, SELFPAY ==
--- NOTE | 2023-07-28 11:36 | DI.RAD.S_ITS ---
PROCEDURE: XR KNEE LT 3V INDICATIONS: fall, knee pain, work injury TECHNIQUE: 3 views of the knee were acquired. COMPARISON: None. FINDINGS: Bones: There are mild degenerative changes. No displaced fracture or dislocation. Soft tissues: Small knee joint effusion. IMPRESSION: No acute radiographic abnormality. Small knee joint effusion. If there is high concern for further derangement, consider MRI evaluation. Dictated by: Jerry Olivera M.D. on 07/28/2023 at 12:07 Approved by: Jerry Olivera M.D. on 07/28/2023 at 12:07
== END ==
PROVIDERS: Referring Provider Student in an Organized Health Care Education/Training Program; Visit Provider Student in an Organized Health Care Education/Training Program
DX: S80.02XA Contusion of left knee, initial encounter (principal); M25.462 Effusion, left knee; W19.XXXA Unspecified fall, initial encounter; Y99.0 Civilian activity done for income or pay
CPT/HCPCS: 73562

== ENCOUNTER → 2025-03-02 13:28 | Outpatient (CLI) | payer OTHER, SELFPAY ==
[2025-03-02 13:57] LABS: Add Manual Diff / Slide Review NO; Basophils Absolute Auto 0 /uL (0-100); Basophils Percent Auto 0.8 % (0-2); Eosinophils Absolute Auto 100 /uL (0-450); Eosinophils Percent Auto 1.5 % (2-4); Hematocrit 40.6 % (36-46); Hemoglobin 13.9 g/dL (12.0-16.0); Lymphocytes Absolute Auto 1500 /uL (1100-4500); Lymphocytes Percent Auto 40.1 % (25-40); Mean Corpuscular HGB Conc 34.3 % (30-36); Mean Corpuscular Hemoglobin 30.2 PG (26-34); Mean Corpuscular Volume 88.2 fL (80-100); Monocytes Absolute Auto 300 /uL (0-900); Monocytes Percent Auto 8.9 % (3-14); Neutrophils Absolute Auto 1800 /uL (1500-7000); Neutrophils Percent Auto 48.7 % (50-75); Platelet Count 283 X10^3/uL (150-400); Red Cell Distribution Width 13.2 % (11.6-14.8); White Blood Cell Count 3.7 X10^3/uL (4.5-11.0)
[2025-03-02 14:08] LABS: Hemoglobin A1C% w Est Avg Glu 4.7 % (4.0-6.0)
[2025-03-02 14:17] LABS: Alanine Aminotransferase 36 IU/L (<35); Albumin 4.6 g/dL (3.5-5.0); Albumin Globulin Ratio 1.6 (1.0-2.8); Alkaline Phosphatase 43 U/L (38-126); Aspartate Aminotransferase 29 IU/L (14-36); BUN Creatinine Ratio 9.3 (6-22); Bilirubin Total 0.9 mg/dL (0.2-1.3); Blood Urea Nitrogen 8 mg/dL (7-17); Calcium 9.6 mg/dL (8.4-10.2); Carbon Dioxide 27 mmol/L (22-32); Chloride 104 mmol/L (98-107); Cholesterol 311 mg/dL (140-199); Estimated Glomerular Filt Rate > 60 mL/min (>60); Globulin 2.9 g/dL (1.7-4.1); Glucose 104 mg/dL (70-100); HDL Cholesterol 53 mg/dL (40-60); HEMOLYSIS < 15 (0-50); LDL Cholesterol Calculated 236 mg/dL (<100); Potassium 4.3 mmol/L (3.4-5.1); Sodium 139 mmol/L (137-145); Total Protein 7.5 g/dL (6.3-8.2); Triglycerides 111 mg/dL (35-150)
[2025-03-02 14:26] LABS: Rheumatoid Factor < 8.6 IU/mL (<12.0)
[2025-03-02 14:49] LABS: TSH w/ Reflex to FT4 1.76 uIU/mL (0.47-4.68)
[2025-03-07 19:07] LABS: ANA Screen, IFA Negative (.)
== END ==
PROVIDERS: PCP Family Medicine; Referring Provider Family Medicine; Visit Provider Family Medicine
DX: Z00.00 Encounter for general adult medical examination without abnormal findings (principal); G40.909 Epilepsy, unspecified, not intractable, without status epilepticus; M79.7 Fibromyalgia; N80.9 Endometriosis, unspecified; Z76.89 Persons encountering health services in other specified circumstances; Z79.899 Other long term (current) drug therapy; F43.10 Post-traumatic stress disorder, unspecified
CPT/HCPCS: 36415; 80053; 80061; 83036; 84443; 85025; 86038; 86430

== ENCOUNTER → 2025-03-31 10:54 | Outpatient (CLI) | payer OTHER, SELFPAY ==
[2025-03-31 11:36] LABS: Cholesterol 296 mg/dL (140-199); HDL Cholesterol 51 mg/dL (40-60); LDL Cholesterol Calculated 229 mg/dL (<100); Triglycerides 78 mg/dL (35-150)
== END ==
PROVIDERS: PCP Family Medicine; Referring Provider Family Medicine; Visit Provider Family Medicine
DX: E78.5 Hyperlipidemia, unspecified (principal)
CPT/HCPCS: 36415; 80061

== ENCOUNTER → 2025-04-21 08:33 | Outpatient (CLI) | payer OTHER, SELFPAY ==
--- NOTE | 2025-04-21 08:34 | DI.RAD.S_ITS ---
PROCEDURE: XR LUMBAR SPINE 2-3V INDICATIONS: chronic pain TECHNIQUE: 3 views of the lumbar spine were acquired. COMPARISON: None. FINDINGS: Bones: 5 [id number] vertebrae are present. There is normal bony alignment. No vertebral body compression fractures. No suspicious bony lesions. Small vertebral body osteophytes. Soft tissues: Overlying bowel gas pattern is normal. No suspicious soft tissue calcifications. IMPRESSION: Minimal degenerative changes. Early onset. Dictated by: Eddie Barry M.D. on 04/21/2025 at 11:26 Approved by: Eddie Barry M.D. on 04/21/2025 at 11:42
== END ==
PROVIDERS: PCP Family Medicine; Referring Provider Family Medicine; Visit Provider Family Medicine
DX: M54.50 Low back pain, unspecified (principal); G89.29 Other chronic pain; Z99.89 Dependence on other enabling machines and devices
CPT/HCPCS: 72100